=== PATIENT | male | born 1995 | race Caucasian/White ===

== ENCOUNTER → 2018-04-13 | Outpatient (CLI) | payer BC ==
--- NOTE | 2018-04-13 16:27 | RADIOLOGY REPORT (SQ) ---
EXAM DESCRIPTION: CT SINUSES FOR ENT COMPLETED DATE/TIME: 04/13/2018 2:40 pm REASON FOR STUDY: ACUTE RECURRENT SINUSITIS, UNSPECIFIED LOCATION J01.91 ACUTE RECURRENT SINUSITIS, UNSPECIFIED COMPARISON: None. TECHNIQUE: Noncontrast scanning through the paranasal sinuses using bone algorithm. Reconstructed MPR images reviewed. All images stored on PACS. Images acquired for image guided surgery. All CT scanners at this facility use dose modulation, iterative reconstruction, and/or weight based d osing when appropriate to reduce radiation dose to as low as reasonably achievable (ALARA). [facility]: Dose Right [facility]: CareDose [facility]: Dose Right [facility]: Teradose 4D [facility]: iZotope RADIATION DOSE: 47.4 mGy. FINDINGS: NASAL PASSAGES: In the right inferior nasal cavity, between the middle and inferior termin ates there is a 2 x 1 cm nasal polyp. This is best shown on coronal image 127/374. OSTEOMEATAL UNITS AND NASOFRONTAL DUCTS: Right maxillary sinus outlet is patent on coronal image 92. Left maxillary sinus outlet is patent on coronal images 91-97. Bilateral agger nasi and Olesya cells . MAXILLARY SINUSES: On the right side, maxillary sinus is near completely opacified with a mucus or se angie retention cyst. Minimal aeration in the anterior superior aspect of the right maxillary sinus. Left maxillary sinus clear. Maxillary sinus outlets are patent. ETHMOID SINUSES: Well-pneumatized and clear. SPHENOID SINUSES: Mild mucous membrane thickening floor right sphenoid sinus. Left sphenoid sinus cl ear. No sphenoethmoid air cells or pneumatized pterygoid recess. No pneumatized dorsal sella. FRONTAL SINUSES: Well-pneumatized and clear. MASTOID AIR CELLS: Clear. ORBITS: Normal and symmetrical. NASAL SEPTUM: Midline. Small rightward nasal septal spur, posterior 3rd of the nasal septum on axial image 117 and coronal image 110. TEMPOROMANDIBULAR JOINTS: Normal. TURBINATES: No pneumatized turbinates. MUCOPERIOSTEAL THICKENING: No. MUCOCELE: No. OTHER: No other significant findings. IMPRESSION: Right nasal polyps Right Maxillary sinus opacified by a mucus or serous retention cyst TECHNICAL DOCUMENTATION: JOB ID: [id number] Quality ID # [id number]: Final reports with documentation of one or more dose reduction techniques (e.g., Au tomated exposure control, adjustment of the mA and/or kV according to patient size, use of iterative reconstruction technique) 2010 [employer]- All Rights Reserved Reading location - IP/workstation name: [email or web address]
== END ==
LOC: RAD 14:25
PROVIDERS: ATTEND Otolaryngology
DX: J01.91 Acute recurrent sinusitis, unspecified (principal)
CPT/HCPCS: 70486

== ENCOUNTER 2018-05-18 09:29 | Day surgery (SDC) | payer BC ==
[~2018-05-18 09:29] MED LIST: CEFAZOLIN 2 GM/D5W RTU 2 GM/50 ML RTUPB IV PRN
[2018-05-18] MEDS ORDERED: SCOPOLAMINE HYDROBROMIDE 1.5 MG PATCH.TD72 TD ONE (10:35)
[2018-05-18] MEDS ORDERED: LIDOCAINE 0.5% INJ-PF (5 MG/ML) 50 ML SDV SUBCUT PRN (10:46)
[2018-05-18] MEDS ORDERED: RINGERS SOLUTION,LACTATED 250 ML IV PRN (10:47)
[2018-05-18] MEDS ORDERED: LACTATED RINGERS 1000 ML IV PRN (10:47)
[2018-05-18] MEDS ORDERED: ONDANSETRON HCL INJ/PF 4 MG/2 ML SDV ONE (10:53)
[2018-05-18] MEDS ORDERED: FENTANYL CITRATE INJ/PF 250 MCG/5 ML AMPULE ONE (10:53)
[2018-05-18] MEDS ORDERED: GLYCOPYRROLATE INJ 0.4 MG/2 ML VIAL ONE (10:54)
[2018-05-18] MEDS ORDERED: EPHEDRINE SULFATE INJ 50 MG/1 ML AMPULE ONE (10:54)
[2018-05-18] MEDS ORDERED: ACETAMINOPHEN 1,000 MG/100 ML RTUPB IV ONE (10:54)
[2018-05-18] MEDS ORDERED: DEXAMETHASONE SOD PHOS INJ 10 MG/1 ML VIAL ONE (10:54)
[2018-05-18] MEDS ORDERED: ROCURONIUM BROMIDE INJ 50 MG/5 ML VIAL IV ONE (10:55)
[2018-05-18] MEDS ORDERED: PROPOFOL INJ 200 MG/20 ML VIAL IV ONE (10:55)
[2018-05-18] MEDS ORDERED: SUCCINYLCHOLINE CHLORIDE INJ 200 MG/10 ML VIAL ONE (10:55)
[2018-05-18] MEDS ORDERED: MIDAZOLAM 2 MG/2 ML INJ ONE (12:04)
[2018-05-18] MEDS ORDERED: BACITRACIN ZINC OINTMENT 15 GM ONE (12:08)
[2018-05-18] MEDS ORDERED: BUPIVACAINE HCL 0.5%/EPI 1:200000 INJ 1.8 ML CARTRIDGE ONE (12:09)
[2018-05-18] MEDS ORDERED: BUPIVACAINE HCL 0.5%-EPI 1:200000 INJ/PF 30 ML VIAL ONE (12:09)
[2018-05-18] MEDS ORDERED: OXYMETAZOLINE HCL 0.05% NASAL SPRAY 15 ML BOTTLE ONE (12:09)
[2018-05-18] MEDS ORDERED: MINERAL OIL (STERILE) 10 ML VIAL ONE (12:09)
[2018-05-18] MEDS ORDERED: PROMETHAZINE HCL INJ 25 MG/1 ML VIAL ONE (15:37)
[2018-05-18] MEDS ORDERED: OXYCODONE-ACETAMINOPHEN 5-325 MG TABLET ONE (16:08)
--- NOTE | 2018-05-19 08:52 | SURGICARE OPERATIVE REPORT E ---
[facility] Operative Report NAME: CARLOS DUARTE AGE: 22Y DATE OF SURGERY: 05/18/2018 ROOM: PREOPERATIVE DIAGNOSIS: 1. RIGHT MAXILLARY SINUS/POLYP/CYSTIC DISEASE. 2. RIGHT NASAL PASSAGE POLYPS/CYSTIC DISEASE. 3. RIGHT ANTROCHOANAL POLYP. 4. NASAL SEPTAL DEVIATION ACQUIRED. 5. 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 6. BILATERAL INFERIOR TURBINATE HYPERTROPHY. 7. MAXILLARY CREST SPUR/SEPTAL SPUR. POSTOPERATIVE DIAGNOSIS: 1. RIGHT MAXILLARY SINUS/POLYP/CYSTIC DISEASE. 2. RIGHT NASAL PASSAGE POLYPS/CYSTIC DISEASE. 3. RIGHT ANTROCHOANAL POLYP. 4. NASAL SEPTAL DEVIATION ACQUIRED. 5. 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 6. BILATERAL INFERIOR TURBINATE HYPERTROPHY. 7. MAXILLARY CREST SPUR/SEPTAL SPUR. OPERATION: 1. Image-guidance functional endoscopic sinus surgery as follows. 2. Right nasal passage polyp/cystic disease removal via transnasal rigid surgical endoscopy. 3. Right maxillary antrostomy with extensive tissue removal via transnasal rigid surgical endoscopy. 4. Bilateral middle turbinate biopsies for rule out polyp disease via bilateral rigid transnasal surgical endoscopy. 5. Septoplasty. 6. Bilateral middle turbinate reduction. 7. Bilateral inferior turbinate reduction using a submucous resection technique. SURGEON: VISHAL ROSADO D.O. ANESTHESIA: General endotracheal tube. ANESTHESIA STAFF: Sara GROVE. ESTIMATED BLOOD LOSS: 50 mL. FLUIDS: 1500 mL for IV fluids. COMPLICATIONS: None. DRAINS: None. SPONGE COUNT: Verified. NEEDLE COUNT: Verified. MATERIALS FORWARDED SPECIMENS: 1. Bilateral middle turbinate tissue for rule out polyp disease. 2. Right nasal passage polyp and cystic tissue sent for rule out polyp disease and mucous retention cyst. 3. Right maxillary sinus tissue sent for rule out polyp disease and mucous retention cyst. FINDINGS: 1. Left nasal septal deviation involving bone and cartilage and there was a prominent maxillary crest spur/septal spur. 2. Severe right nasal passage polyp and cystic tissue that filled the right maxillary sinus and extended until the right nasal passage into the right nasopharynx as an antrochoanal polyp. 3. Bilateral middle turbinates were with polyp disease/polypoid changes. INDICATIONS: This is a 22-year-old white male patient who was seen and evaluated in the [facility] office. The patent had been originally seen at [facility] with CT sinus imaging completed there which revealed severe right maxillary sinus and right nasal passage polyp disease/mucous retention cyst disease. The patient clinically was noted to have findings consistent with CT sinus imaging findings with flexible endoscopy completed in clinic. The patient also complained of a long-standing history of chronic nasal dyspnea over the years. After extensive discussion with the patient, recommendation and plan was made to proceed with functional endoscopic sinus surgery, septoplasty, turbinate reductions, middle turbinate tissue biopsies for rule out polyp disease, and possible right Bradley-Ehsan procedure. The procedures and all of their risks and complications were all discussed in detail with the patient. He voiced an understanding of the described surgical plan, agreed to proceed, and consent was obtained. PROCEDURE IN DETAIL: The patient was taken to the main operating room and was placed on the operating room table in the supine position. Appropriate monitors were placed. Using mask and IV access, general anesthesia was induced. The patient next underwent a nasal examination with injection of local anesthetic with epinephrine followed by placement of 2 Afrin-soaked neuro patties per side. The patient was rotated in position for sinus and nasal surgery. The patient was prepped and draped in the usual fashion for nasal and sinus surgery. The image guidance system was set up and tested appropriately before beginning the case. The Afrin-soaked neuro patties were removed and the patient underwent a hemitransfixion incision. The mucoperichondrial and mucoperiosteal flaps were elevated. Care was taken to dissect around the maxillary crest spur/septal spur. The bony cartilaginous junction was identified and divided and the most deviated portions of septal cartilage and bone were removed. There was a greater than 1.5 x 1.5 cm cartilaginous L-Strut that was preserved. A V-chisel was used to remove the maxillary crest spur/septal spur without difficulty. At this point the turbinate bipolar wand was used to make 2 passes in each inferior turbinate. Next, the anterior portion of each inferior turbinate was entered with a pair of Kike scissors and tissue elevation was completed in a submucosal plane with a Starbuck elevator. At this point, the Starbuck elevator was used to outfracture each inferior turbinate. Next, a turbinate microdebrider system at a setting of 1500 RPM was used to perform submucous resection on each side. Last redundant/excessive mucosa was trimmed and the margins were reapproximated with chromic suture. At this point, the image-guidance functional endoscopic surgery with biopsies was completed in the following fashion. During this process there was bilateral transnasal rigid surgical endoscopy utilized along with sinus surgery instrumentation and the microdebrider system at a setting of 3000 RPM. The anterior middle turbinate biopsies were completed on each side with tissue sent for permanent pathology evaluation for rule out polyp disease. At this point, the anterior portion of the middle turbinates were debulked/reduced in size, removing the polyp disease/polypoid tissue changes. Once complete, attention was turned to the right nasal passage and right maxillary sinus. The extensive right nasal passage polyp disease/mucous retention cyst disease was debulked and removed for permanent pathology evaluation. At this point, an extensive right maxillary antrostomy was completed with additional tissue removed from the right maxillary sinus. Once complete, there was a remnant of tissue toward the floor of the right maxillary sinus that appeared as a tissue remnant of a right maxillary sinus mucous retention cyst. At this point, the nose and sinuses were thoroughly irrigated and fluid was suctioned. There was adequate hemostasis noted. Cartilage that had been removed from the nasal septum was placed back between the mucosal flaps to be banked. It was fixed in position with a septal mattress whip stitch using chromic suture. The hemitransfixion incision was reapproximated with chromic suture. At this point, 1 modified Merocel pack with bacitracin ointment was placed per side and these were secured at the caudal aspect with 4-0 Prolene suture. The patient's nose was then cleaned and dried and he was returned to the anesthesia staff. The patient was allowed to emerge from general anesthesia and was then extubated in the main operating room without difficulty. He was transported to the postanesthesia recovery unit in stable condition. There were no complications. DICTATING PHYSICIAN: VISHAL ROSADO D.O. [id number] PHY#: [id number] ID: [id number] JOB#: [id number] ACCT: [id number] cc:VISHAL ROSADO D.O. >
== END 2018-05-18 15:05 | disposition home or self-care (01) ==
LOC: SC 09:29
PROVIDERS: ATTEND Otolaryngology
DX: J32.9 Chronic sinusitis, unspecified (principal); K11.6 Mucocele of salivary gland; J34.2 Deviated nasal septum; J34.89 Other specified disorders of nose and nasal sinuses; J01.91 Acute recurrent sinusitis, unspecified; J33.8 Other polyp of sinus; R06.09 Other forms of dyspnea; J34.3 Hypertrophy of nasal turbinates
CPT/HCPCS: 88305 ×2; 31256; 30140; 30520; 31237; J2250; J3490 ×7; J3010; J2550; J0330; J2405; J2704; J1100; J0690; J0131; 160